=== PATIENT | male | born 1990 | race Two or more races ===

== ENCOUNTER 2019-07-15 12:36 | Emergency (ER) | payer SELFPAY ==
[~2019-07-15] VITALS: Ht 172.7 cm; Wt 72.6 kg
[2019-07-15 12:50] VITALS: BP 114/71
--- NOTE | 2019-07-15 12:50 | NUR ---
ED Nurse Note: pt brought in to ER by ambulance from home after witnessed seizure by a friend. pt sleeping but responds to his name. skin clean and intact. pt is in gown and on monitor technician. no acute distress noted. seizure pads applied.
[2019-07-15 13:17] LABS: BASOPHILS % (AUTO) 1.1 % (0.0-2.0); EOSINOPHILS % (AUTO) 1.8 % (0.0-3.0); HEMATOCRIT 44.8 % (42.0-52.0); HEMOGLOBIN 14.3 G/DL (14.2-18.0); LYMPHOCYTES % (AUTO) 27.4 % (20.0-45.0); MEAN CORPUSCULAR VOLUME 86 FL (80-99); MONOCYTES % (AUTO) 7.8 % (1.0-10.0); PLATELET COUNT 230 K/UL (150-450); RED CELL DISTRIBUTION WIDTH 12.7 % (11.6-14.8); WHITE BLOOD COUNT 5.6 K/UL (4.8-10.8)
[2019-07-15 13:26] LABS: ANION GAP 10 mmol/L (5-15); BLOOD UREA NITROGEN 11 mg/dL (7-18); CALCIUM 9.4 MG/DL (8.5-10.1); CARBON DIOXIDE 27 MMOL/L (21-32); CHLORIDE 106 MMOL/L (98-107); CREATININE 1.3 MG/DL (0.55-1.30); POTASSIUM 4.4 MMOL/L (3.5-5.1); SODIUM 143 MMOL/L (136-145)
[2019-07-15 13:32] LABS: ALANINE AMINOTRANSFERASE 17 U/L (12-78); ALBUMIN 4.2 G/DL (3.4-5.0); ALBUMIN/GLOBULIN RATIO 1.2 (1.0-2.7); ALKALINE PHOSPHATASE 64 U/L (46-116); ASPARTATE AMINO TRANSFERASE 20 U/L (15-37); BILIRUBIN,TOTAL 0.6 MG/DL (0.2-1.0)
--- NOTE | 2019-07-15 13:53 | NUR ---
ED Nurse Note: urine sent to lab.
--- NOTE | 2019-07-15 14:27 | Emergency Room Report ---
History of Present Illness General Chief Complaint: Seizure Source: Significant Other, EMS Present Illness HPI 29-year-old male presents ED for evaluation. Brought in by EMS status post seizure. Witnessed seizure at home while in bed. Tonic-clonic then resolved. Patient postictal upon arrival. No reported fall or injury. Patient has history of seizures as girlfriend mentions however she does not know what medication the patient takes. Does not have any pill bottles at home. States she does not believe the patient is compliant with his meds. unknown if patient uses any drugs. No other aggravating relieving factors. No other associated symptoms Allergies: Coded Allergies: No Known Allergies (Unverified , 07/15/19) Patient History Past Medical History: seizures Past Surgical History: none Pertinent Family History: none Social History: Denies: smoking, alcohol use, drug use Immunizations: UTD Reviewed Nursing Documentation: PMH: Agreed; PSxH: Agreed Nursing Documentation-PMH Past Medical History: No History, Except For Hx Seizures: Yes Review of Systems All Other Systems: limited Physical Exam Vital Signs Date Time Temp Pulse Resp B/P (MAP) Pulse Ox O2 Delivery O2 Flow Rate FiO2 07/15/19 12:36 97.3 66 20 114/71 (85) 98 Room Air Sp02 EP Interpretation: reviewed, normal General Appearance: no apparent distress, GCS 15, non-toxic, Postictal Head: normocephalic Eyes: bilateral eye normal inspection, bilateral eye PERRL ENT: normal ENT inspection Neck: normal inspection Respiratory: chest non-tender, lungs clear, normal breath sounds, speaking full sentences Cardiovascular #1: regular rate, rhythm, no edema Gastrointestinal: normal bowel sounds, non tender, soft, non-distended, no guarding, no rebound Rectal: deferred Genitourinary: no CVA tenderness Musculoskeletal: normal inspection Neurologic: other - lethargic Psychiatric: other - lethargic Skin: no rash Lymphatic: normal inspection Medical Decision Making Diagnostic Impression: Primary Impression: Seizure disorder Additional Impression: Substance abuse ER Course Hospital Course 29-year-old M presents to ED status post seizure. postictal Differential diagnosis includes- breakthrough seizure, alcohol abuse, noncompliance with medication Clinical course Patient placed on stretcher. Initial history and physical I ordered labs, IV fluids Labs-electrolytes okay, no leukocytosis, hemoglobin/hematocrit stable. UTox + THC + amphetamines Patient allowed to rest is now awake alert oriented x3. Focal deficits. Patient states that he does not actually take any seizure meds. Has been having seizures for the last 5 to 6 months. States that he has been seen in ER multiple times for this. Has had multiple CTs. However states he was not prescribed any medication. I discussed findings of amphetamine and marijuana use which capitate seizures. Patient states that he was told is the possibility. Is agreeable to starting seizure therapy. Will start on Keppra. Given Keppra here. Safe for discharge with close outpatient follow-up. Does not have a PMD. Will provide referrals Diagnosis - substance abuse, seizure disorder stable and discharged to home with Rx Keppra. Followup with PMD. Return to ED if symptoms recur or worsen Labs Test 07/15/19 12:50 07/15/19 13:50 White Blood Count 5.6 K/UL (4.8-10.8) Red Blood Count 5.20 M/UL (4.70-6.10) Hemoglobin 14.3 G/DL (14.2-18.0) Hematocrit 44.8 % (42.0-52.0) Mean Corpuscular Volume 86 FL (80-99) Mean Corpuscular Hemoglobin 27.5 PG (27.0-31.0) Mean Corpuscular Hemoglobin Concent 31.9 G/DL (32.0-36.0) Red Cell Distribution Width 12.7 % (11.6-14.8) Platelet Count 230 K/UL (150-450) Mean Platelet Volume 6.9 FL (6.5-10.1) Neutrophils (%) (Auto) 62.0 % (45.0-75.0) Lymphocytes (%) (Auto) 27.4 % (20.0-45.0) Monocytes (%) (Auto) 7.8 % (1.0-10.0) Eosinophils (%) (Auto) 1.8 % (0.0-3.0) Basophils (%) (Auto) 1.1 % (0.0-2.0) Sodium Level 143 MMOL/L (136-145) Potassium Level 4.4 MMOL/L (3.5-5.1) Chloride Level 106 MMOL/L (98-107) Carbon Dioxide Level 27 MMOL/L (21-32) Anion Gap 10 mmol/L (5-15) Blood Urea Nitrogen 11 mg/dL (7-18) Creatinine 1.3 MG/DL (0.55-1.30) Estimat Glomerular Filtration Rate > 60 mL/min (>60) Glucose Level 95 MG/DL (74-106) Calcium Level 9.4 MG/DL (8.5-10.1) Total Bilirubin 0.6 MG/DL (0.2-1.0) Aspartate Amino Transf (AST/SGOT) 20 U/L (15-37) Alanine Aminotransferase (ALT/SGPT) 17 U/L (12-78) Alkaline Phosphatase 64 U/L (46-116) Total Protein 7.7 G/DL (6.4-8.2) Albumin 4.2 G/DL (3.4-5.0) Globulin 3.5 g/dL Albumin/Globulin Ratio 1.2 (1.0-2.7) Salicylates Level 2.4 ug/mL (2.8-20) Acetaminophen Level < 2 MCG/ML (10-30) Phenytoin (Dilantin) Level 0.6 ug/mL (10-20) Carbamazepine (Tegretol) Level < 0.5 ug/mL (4.0-12.0) Phenobarbital Level 1.2 ug/mL (15-40) Serum Alcohol < 3 mg/dL Urine Opiates Screen Negative (NEGATIVE) Urine Barbiturates Screen Negative (NEGATIVE) Phencyclidine (PCP) Screen Negative (NEGATIVE) Urine Amphetamines Screen Positive (NEGATIVE) Urine Benzodiazepines Screen Negative (NEGATIVE) Urine Cocaine Screen Negative (NEGATIVE) Urine Marijuana (THC) Screen Positive (NEGATIVE) Last Vital Signs Date Time Temp Pulse Resp B/P (MAP) Pulse Ox O2 Delivery O2 Flow Rate FiO2 07/15/19 12:50 97.3 67 20 114/71 98 Room Air Status: improved Disposition: HOME, SELF-CARE Condition: Stable Scripts Levetiracetam (KEPPRA) 500 Mg Tablet 500 MG ORAL EVERY 12 HOURS, #60 TAB 0 Refills Prov: Yasir Camilo MD 07/15/19 Referrals: NOT CHOSEN [facility]/,REFERRING (PCP) Yasir Camilo MD Jul 15, 2019 14:27
[2019-07-15] MEDS ORDERED: KEPPRA500 M4 ORAL (15:16)
--- NOTE | 2019-07-15 15:31 | NUR ---
ED Nurse Note: pt cleared to be d/c per ERMd, pt discharge and aftercare instruction provided w/ prescription, pt education done, pt advised to follow up with pcp or return to ed if changes in condition, vss, ambulatory w/ steady gait, left w/ all belongings, iv d/c and id band removed, pt accompanied by friend.
[2019-07-15 15:32] VITALS: BP 128/86
== END 2019-07-15 15:32 | disposition home or self-care (01) ==
LOC: EDBD 12:36 → EMR 12:55
DX: G40.909 Epilepsy, unspecified, not intractable, without status epilepticus (principal); F19.10 Other psychoactive substance abuse, uncomplicated
CPT/HCPCS: 36415; 80053; 80156; 80184; 80185; 80299; 80307; 82962; 85025; 96360; 99284; G0480; 80329

== ENCOUNTER 2019-08-09 20:19 | Emergency (ER) | payer OTHER, MEDICAID ==
[~2019-08-09] VITALS: Ht 170.2 cm; Wt 81.6 kg
[~2019-08-09 20:19] MED LIST: KEPPRA500 M4 ORAL
[2019-08-09 20:30] VITALS: BP 141/90
--- NOTE | 2019-08-09 20:30 | NUR ---
ED Nurse Note: Patient brought in by ambulance accompanied by LAPBertha c/o medical clearance, patient was tased prior to arrival and is complaining of left hand pain radiating to his left upper back, patient states that he was tased twice, complains of 8/10 pain, will wait for further orders
--- NOTE | 2019-08-09 21:15 | Diagnostic Imaging Report ---
Indication: Left hand pain Technique: 3 views left hand Comparison: none Findings: There are impacted fractures of the third and fourth proximal metacarpals. These may extend into the articular surface. These are posteriorly displaced by about one half bone width. There is a fracture of the posterior corner of the base of the fifth distal phalanx. This is posteriorly displaced. Acuity is indeterminate as the margins of the fracture lines appear corticated and there is evidence of some secondary degenerative change There is an old ununited fracture of the ulnar styloid. No other acute fractures. Joint spaces are preserved. Surgical hardware is seen along the radial shaft Impression: Positive for acute third and fourth that is pleural-based fractures Acuity indeterminate fracture of the base of the fifth distal phalanx Evidence of prior ulnar and radial trauma, evidence of prior radial fixation surgery This agrees with the preliminary interpretation provided overnight by [facility] teleradiology service.
[2019-08-09] MEDS ORDERED: Tetanus/Diptheria/Pertussis IM ONE (21:30)
[2019-08-09] MEDS ORDERED: Augmentin 875mg Tab ORAL ONE (21:30)
[2019-08-09] MEDS ORDERED: Naproxen 500mg tab ORAL ONE (22:15)
[2019-08-09] MEDS ORDERED: Acetaminophen 500mg (ES) tab ORAL ONE (22:15)
[2019-08-09] MEDS ORDERED: AUGMENTIN 875-1 EAC1 ORAL (22:20)
[2019-08-09] MEDS ORDERED: NAPROXEN250 MG ORAL (22:20)
--- NOTE | 2019-08-09 22:20 | Emergency Room Report ---
History of Present Illness General Chief Complaint: Medical Clearance Source: Patient Present Illness HPI 28-year-old male no past medical history presents with left hand pain after being tased just prior to arrival, he fell forward on his left hand patient endorses sharp pain worsened with movement alleviated with rest, patient also with a taser to the left back. Allergies: Coded Allergies: No Known Allergies (Unverified , 07/15/19) Patient History Past Medical History: see triage record Reviewed Nursing Documentation: PMH: Agreed; PSxH: Agreed Nursing Documentation-PMH Past Medical History: No History, Except For Hx Seizures: Yes Review of Systems All Other Systems: negative except mentioned in HPI Physical Exam Vital Signs Date Time Temp Pulse Resp B/P (MAP) Pulse Ox O2 Delivery O2 Flow Rate FiO2 08/09/19 20:24 98.6 84 18 141/90 (107) 97 Room Air Sp02 EP Interpretation: reviewed, normal General Appearance: well appearing, no apparent distress, alert Head: normocephalic, atraumatic Eyes: bilateral eye PERRL, bilateral eye EOMI ENT: uvula midline, moist mucus membranes Neck: supple, thyroid normal, supple/symm/no masses Respiratory: lungs clear, no respiratory distress, no retraction, no accessory muscle use Cardiovascular #1: normal peripheral pulses, regular rate, rhythm, no edema, no gallop, no murmur Gastrointestinal: non tender, soft, no guarding, no rebound Musculoskeletal: normal inspection, other - Back: Taser embedded to the left upper back, left hand: Tenderness to palpation metacarpals 3 and 4, 2+ radial pulses cap refill less than 3 seconds, radial median ulnar nerve intact 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 Neurologic: alert, oriented x3 Psychiatric: mood/affect normal Skin: no rash, warm/dry Procedures Splinting Splinting : Consent: Verbal Location: Left hand Splint: ulnar - Modified covering digits 2 through 5 Pre-Proc Neuro Vasc Exam: normal Post-Proc Neuro Vasc Exam: normal Patient Tolerated: Well Complications: None Additional Procedure Procedure Narrative Left upper back: Foreign body removed using lidocaine 1%, area was cleansed with chlorhexidine, patient gave verbal permission, the scalpel was used to make a small luci to remove the taser prong Medical Decision Making Diagnostic Impression: Primary Impression: Hand fracture, left Qualified Codes: S62.92XA - Unspecified fracture of left wrist and hand, initial encounter for closed fracture Additional Impression: Taser injury Qualified Codes: T75.4XXA - Electrocution, initial encounter ER Course 28-year-old male presents with left hand pain, most likely a fracture, x-ray shows a fracture, foreign body was removed from the left upper back tetanus was given, pain control. Will disposition patient back to law enforcement patient is medically cleared CT/MRI/US Diagnostic Results CT/MRI/US Diagnostic Results : Impression Preliminary Findings Only See Final Report For Complete Findings FILM LEFT HAND: Fractures of the base of the third and fourth metacarpals. Soft tissue swelling. Fracture of uncertain chronicity at the fifth interphalangeal joint area Degenerative changes. Plate and screw fixation distal in the radius. Radiologist: Angus Turner M.D. Study ready at 21:12 and initial results transmitted at 21:14 Last Vital Signs Date Time Temp Pulse Resp B/P (MAP) Pulse Ox O2 Delivery O2 Flow Rate FiO2 08/09/19 20:24 98.6 84 18 141/90 (107) 97 Room Air Disposition: HOME, SELF-CARE Condition: Stable Scripts Naproxen* (NAPROSYN*) 250 Mg Tablet 250 MG ORAL BID PRN for For Pain, #20 TAB 0 Refills Prov: Favio Saleh MD 08/09/19 Amoxicillin/Potassium Clav 875-125* (AUGMENTIN 875-125 TABLET*) 1 Each Tablet 1 TAB ORAL TWICE A DAY, #14 TAB Prov: Favio Saleh MD 08/09/19 Referrals: NOT CHOSEN [facility]/MD,REFERRING (PCP) [facility] Departure Forms: Detention Clearance Patient Instructions: Metacarpal Fracture, [id number] Additional Instructions: The patient was provided with discharge instructions, notified to follow-up with a primary care doctor and or specialist in the next 24-48 hours, and to return to the ED if they have worsening of their symptoms. Please note that this report is being documented using [employer] technology. This can lead to erroneous entry secondary to incorrect interpretation by the dictating instrument. Favio Saleh MD Aug 09, 2019 22:20
[2019-08-09 22:30] VITALS: BP 132/78
--- NOTE | 2019-08-09 22:30 | NUR ---
Note lora in EDM - 08/10/19 at 0129 by ANGELIKA ER DISCHARGE NOTE: Patient is cleared to be discharged per ERMD, pt is aox4, on room air, with stable vital signs. pt was given dc and prescription instructions, pt was able to verbalize understanding, pt id band removed without complications. pt is able to ambulate with steady gait. pt took all belongings.Patient was applied a sling and laceration cleaned up
== END 2019-08-09 22:30 | disposition home or self-care (01) ==
LOC: EDUNIT# 20:19 → EDBD 20:19 → EMR 21:30
DX: S62.313A Displaced fracture of base of third metacarpal bone, left hand, initial encounter for closed fracture (principal); S62.315A Displaced fracture of base of fourth metacarpal bone, left hand, initial encounter for closed fracture; S62.317A Displaced fracture of base of fifth metacarpal bone, left hand, initial encounter for closed fracture; T75.4XXA Electrocution, initial encounter; S20.452A Superficial foreign body of left back wall of thorax, initial encounter; Y35.893A Legal intervention involving other specified means, suspect injured, initial encounter; Y92.9 Unspecified place or not applicable; Z23 Encounter for immunization
CPT/HCPCS: 29125; 90471; 90715; 99283

== ENCOUNTER 2020-09-10 07:50 | Inpatient (IN) | payer SELFPAY ==
[2020-09-10] VITALS (7 sets, daily range): BP systolic 121–134; BP diastolic 68–88
[~2020-09-10] VITALS: Ht 170.2 cm; Wt 92.0 kg
[~2020-09-10 07:50] MED LIST changes: +AUGMENTIN 875-1 EAC1 ORAL; +NAPROXEN250 MG ORAL
--- NOTE | 2020-09-10 07:55 | Emergency Room Report ---
History of Present Illness General Chief Complaint: Seizure Source: Patient Present Illness HPI 29-year-old male with history of seizure disorder here with a seizure. Patient lives in an apartment with several other individuals who said that the patient had a tonic-clonic type seizure earlier this morning. This occurred about 30 minutes prior to coming to the emergency department. They state that the patie nt has had seizures many times in the past. Patient admits to being noncompliant with his seizure medications. He says he has not taken seizure medications in several years. Does not know the name of the medication that he was taking previously. Denies trauma, headache, vision changes, focal numbness or weakness, chest pain, palpitations, shortness of breath, back pain, abdominal pain, nausea, vomiting, diarrhea, dysuria, drug use, daily alcohol use. Stat blood glucose per paramedics was 102. Allergies: Coded Allergies: No Known Allergies (Unverified , 07/15/19) COVID-19 Screening Contact w/high risk pt: No Experienced COVID-19 symptoms?: No COVID-19 Testing performed TITLE INSURANCE AGENT: No Nursing Documentation-[facility] Past Medical History: No History, Except For Hx Seizures: Yes Review of Systems All Other Systems: negative except mentioned in HPI Physical Exam Vital Signs Date Time Temp Pulse Resp B/P (MAP) Pulse Ox O2 Delivery O2 Flow Rate FiO2 09/10/20 07:46 98.1 105 20 121/72 (88) 98 Room Air Sp02 EP Interpretation: reviewed, normal General Appearance: no apparent distress, GCS 15, non-toxic, other - Appears fatigued and mildly lethargic, but is awake and arousable and answering questions appropriately Head: normocephalic, atraumatic Eyes: bilateral eye normal inspection, bilateral eye PERRL ENT: hearing grossly normal, normal pharynx, no angioedema, normal voice Neck: full range of motion, supple/symm/no masses Respiratory: chest non-tender, lungs clear, normal breath sounds, speaking full sentences Cardiovascular #1: regular rate, rhythm, no edema Cardiovascular #2: 2+ carotid (R), 2+ carotid (L), 2+ radial (R), 2+ radial (L), 2+ dorsalis pedis (R), 2+ dorsalis pedis (L) Gastrointestinal: normal bowel sounds, non tender, soft, non-distended, no guarding, no rebound Rectal: deferred Genitourinary: normal inspection, no CVA tenderness Musculoskeletal: back normal, normal range of motion, gait/station normal, non- tender Neurologic: alert, motor strength/tone normal, oriented, oriented x3, sensory intact, responsive, speech normal Psychiatric: judgement/insight normal, memory normal, mood/affect normal, no suicidal/homicidal ideation Lymphatic: no adenopathy Medical Decision Making Diagnostic Impression: Primary Impression: KYARA (acute kidney injury) Additional Impressions: Seizure AMS (altered mental status) ER Course EKG: NSR, no ischemia, intervals WNL. No ectopy. rate 88bpm Rhythm strip: patient monitored for arrhythmias - no malignant dysrhythmias, runs of PVCs, nor pauses noted Total critical care time: Approximately 25 minutes Due to a high probability of clinically significant, life threatening deterioration, the patient required the highest level of preparedness to intervene emergently and I personally spent this critical care time directly and personally managing the patient. This critical care time included obtaining a history, examining the patient, pulse oximetry, ordering and reviewing studies, ordering treatments, evaluating response to treatment and updating management plan as needed, frequent reassessment and discussion with other providers as well as arranging for ultimate disposition. This critical to care time was performed to assess and manage the high probability of life-threatening deterioration that could result in multiorgan failure. This critical care time is separate from the separately billable procedures and treating other patients. Laboratory Tests Test 09/10/20 07:55 09/10/20 08:10 White Blood Count 7.9 K/UL (4.8-10.8) Red Blood Count 6.64 M/UL (4.70-6.10) H Hemoglobin 18.3 G/DL (14.2-18.0) *H Hematocrit 58.4 % (42.0-52.0) H Mean Corpuscular Volume 88 FL (80-99) Mean Corpuscular Hemoglobin 27.6 PG (27.0-31.0) Mean Corpuscular Hemoglobin Concent 31.3 G/DL (32.0-36.0) L Red Cell Distribution Width 12.6 % (11.6-14.8) Platelet Count 222 K/UL (150-450) Mean Platelet Volume 7.8 FL (6.5-10.1) Neutrophils (%) (Auto) 63.5 % (45.0-75.0) Lymphocytes (%) (Auto) 26.0 % (20.0-45.0) Monocytes (%) (Auto) 7.8 % (1.0-10.0) Eosinophils (%) (Auto) 1.3 % (0.0-3.0) Basophils (%) (Auto) 1.4 % (0.0-2.0) Sodium Level 136 MMOL/L (136-145) Potassium Level 4.8 MMOL/L (3.5-5.1) Chloride Level 97 MMOL/L (98-107) L Carbon Dioxide Level 22 MMOL/L (21-32) Anion Gap 17 mmol/L (5-15) H Blood Urea Nitrogen 17 mg/dL (7-18) Creatinine 2.0 MG/DL (0.55-1.30) H Estimated Glomerular Filtration Rate 47.8 mL/min (>60) Glucose Level 136 MG/DL (74-106) H Calcium Level 9.4 MG/DL (8.5-10.1) Total Bilirubin 0.4 MG/DL (0.2-1.0) Aspartate Amino Transferase (AST) 27 U/L (15-37) Alanine Aminotransferase (ALT) 22 U/L (12-78) Alkaline Phosphatase 74 U/L (46-116) Total Protein 8.3 G/DL (6.4-8.2) H Albumin 4.7 G/DL (3.4-5.0) Globulin 3.6 g/dL Albumin/Globulin Ratio 1.3 (1.0-2.7) POC Whole Blood Glucose 86 MG/DL (74-106) CXR: No infiltrate/effusion. Mediastinum within normal limits. Mild cardiomegaly. No free air under the diaphragm 29-year-old male with suspected seizure disorder here with seizure and altered mental status. Patient appears postictal and confused throughout his stay in the emergency department. CBC revealed a highly elevated hemoglobin of 18.6. Hematocrit was 58%. CMP revealed elevated creatinine of 2.0. Patient was given 2 L of IV normal saline in the emergency department. It is unknown whether the patient has a normal baseline creatinine. However when patient was lucid enough to answer questions he said he had no medical problems. At this time it is very difficult to obtain history secondary to his confusion and postictal state. CT of the head did not show any acute abnormalities. Urine drug screen positive for amphetamines and THC. Patient was admitted to telemetry. Last Vital Signs Date Time Temp Pulse Resp B/P (MAP) Pulse Ox O2 Delivery O2 Flow Rate FiO2 09/10/20 07:46 98.1 105 20 121/72 (88) 98 Room Air Scripts Levetiracetam (KEPPRA) 500 Mg Tablet 500 MG ORAL EVERY 12 HOURS, #60 TAB 0 Refills Prov: Finn Ching M.D. 09/10/20 iFnn Ching M.D. Sep 10, 2020 07:55
[2020-09-10] MEDS ORDERED: levETIRAcetam 1,000mg/NS100ml 100 ML IVPB ONE (08:00)
--- NOTE | 2020-09-10 08:00 | NUR ---
ED Nurse Note: pt arrives from home via [facility] with c/o witnessed seizure lasting approx 1 minute. pt arouseable to verbal stimuli and is oriented to self, place and year. pt appears post ictal and lethargic. no trauma noted. pt with frequent teeth grinding noted. resp even and regular airway well maintained. seizure pads in use and placed on telemetry. pt tolerates iv start and lab draw well.
[2020-09-10] MEDS ORDERED: KEPPRA500 M4 ORAL (08:10)
--- NOTE | 2020-09-10 08:20 | NUR ---
ED Nurse Note: pt to ct. no new seizure activity noted.
[2020-09-10 08:26] LABS: CALCIUM 9.4 MG/DL (8.5-10.1); POTASSIUM 4.8 MMOL/L (3.5-5.1)
[2020-09-10 08:30] LABS: ALBUMIN 4.7 G/DL (3.4-5.0); ALBUMIN/GLOBULIN RATIO 1.3 (1.0-2.7); BILIRUBIN,TOTAL 0.4 MG/DL (0.2-1.0)
[2020-09-10 08:33] LABS: BASOPHILS % (AUTO) 1.4 % (0.0-2.0); EOSINOPHILS % (AUTO) 1.3 % (0.0-3.0); HEMATOCRIT 58.4 % (42.0-52.0); MEAN CORPUSCULAR VOLUME 88 FL (80-99); MONOCYTES % (AUTO) 7.8 % (1.0-10.0); NEUTROPHILS % (AUTO) 63.5 % (45.0-75.0); PLATELET COUNT 222 K/UL (150-450); RED BLOOD COUNT 6.64 M/UL (4.70-6.10); RED CELL DISTRIBUTION WIDTH 12.6 % (11.6-14.8); WHITE BLOOD COUNT 7.9 K/UL (4.8-10.8)
[2020-09-10 08:35] LABS: HEMOGLOBIN 18.3 G/DL (14.2-18.0)
--- NOTE | 2020-09-10 08:45 | NUR ---
ED Nurse Note: returned from ct scan, no new seizure activity. tolerates keppra well. airway well maintained.
--- NOTE | 2020-09-10 08:55 | NUR ---
ED Nurse Note: pt with straight cath urine obtained, tolerates well. pt noted to have been incontinent of urine. sample sent as ordered.
[2020-09-10 09:20] LABS: APPEARANCE,URINE CLEAR; BILIRUBIN, URINE NEGATIVE (NEGATIVE); GLUCOSE, URINE (UA) NEGATIVE (NEGATIVE); KETONES,URINE NEGATIVE (NEGATIVE); LEUKOCYTE ESTERASE ,URINE NEGATIVE (NEGATIVE); NITRITE,URINE NEGATIVE (NEGATIVE); PH,URINE 6.5 (4.5-8.0); PROTEIN,URINE 3+ (NEGATIVE); UROBILINOGEN,URINE 1 MG/DL (0.0-1.0)
[2020-09-10 09:25] LABS: COLOR,URINE YELLOW
--- NOTE | 2020-09-10 09:26 | Diagnostic Imaging Report ---
EXAM: CT CT Head no Contrast INDICATION: Altered mental status. Seizure. TECHNIQUE: Axial images of the brain were obtained with subsequent sagittal and coronal reformats. All CT scans at this facility are performed using dose modulation techniques as appropriate to a performed exam including the following: automated exposure control with adjustment of the mA and/or kV according to patient size. COMPARISON STUDY: None. RADIATION DOSE: CTDIvol: 53.4 mGy DLP: 1072.2 mGy-cm Dose information generated by the CT scanner is available in PACS. FINDINGS: There is normal symmetry and normal ott-white differentiation. There is no acute large territory cortical infarct, hemorrhage, mass effect or shift. Ventricles and cisterns as well as brainstem and posterior fossa appear unremarkable. The sellar region is normal. Sinuses, mastoid air cells and bony calvarium appear intact. IMPRESSION: NO ACUTE INTRACRANIAL ABNORMALITY.
[2020-09-10] MEDS ORDERED: LEVETIRACETAM500 MG ORAL (10:36)
[2020-09-10] MEDS ORDERED: Mylanta II UD 30ml ORAL PRN (11:00)
[2020-09-10] MEDS ORDERED: Albuterol/Ipratropium 3ml neb HHN PRN (11:00)
[2020-09-10] MEDS ORDERED: Miralax 17gm pkt ORAL PRN (11:00)
--- NOTE | 2020-09-10 11:29 | History and Physical ---
History of Present Illness General Reason for Hospitalization: Seizure Present Illness HPI Mr. Christensen is a 29M with PMH of seizures disorder who was BIBA for witnessed tonic clonic seizure. Per discussion with ED physician, a neighbor or bystander witnessed patient undergo tonic clonic seizure before calling 911. No other information known at the scene. Patient does not remember how he got to the hospital; "last thing I remember was falling asleep." Says he is living alone, however, ED physician said possibly came from [facility] [address] as he was previo usly incarcerated. Patient reports long standing history of seizure disorder and gets breakthrough seizures 1-2 per year. He is on Keppra 1000mg BID and reports compliance. He admits to amphetamine use frequently. Prior to event patient reports feeling well. Denies any recents illnesses, sick contacts, or travels. No new medications. In the ED, patient hemodynamically stable. No airway compromise. He is a little lethargic but AOx4. Labs show hemoconcentration and KYARA. He was bolused fluids and given Keppra. CT head neg. PMH: Seizure disorder Fx: denies seizure history or other medical history Sx: none Meds: keppra Soc: denies smoking, soc drinker, +methamphetamine use Allergies: Coded Allergies: No Known Allergies (Unverified , 07/15/19) COVID-19 Screening Contact w/high risk pt: No Experienced COVID-19 symptoms?: No Medication History Scheduled Amoxicillin/Potassium Clav 875-125* (Augmentin 875-125 Tablet*), 1 TAB ORAL TWICE A DAY Levetiracetam (Keppra), 500 MG ORAL EVERY 12 HOURS Levetiracetam (Keppra), 500 MG ORAL EVERY 12 HOURS Levetiracetam* (Levetiracetam*), 1,000 MG ORAL TWICE A DAY, (Reported) Scheduled PRN Naproxen* (Naprosyn*), 250 MG ORAL BID PRN for For Pain Patient History Healthcare decision maker Resuscitation status Advanced Directive on File Review of Systems Constitutional: Denies: no symptoms, see HPI, chills, sweats, fever, malaise, weakness, other Eye: Denies: no symptoms, see HPI, eye pain, blurred vision, tearing, double vision, nose pain, nose congestion, acuity changes, discharge, other ENT: Denies: no symptoms, see HPI, ear pain, ear discharge, nose pain, nose congestion, throat pain, throat swelling, mouth pain, hearing loss, nasal discharge, other Respiratory: Denies: no symptoms, see HPI, cough, orthopnea, shortness of breath, stridor, wheezing, WILLIAM, sputum, other Cardiovascular: Denies: no symptoms, see HPI, chest pain, edema, palpitations, syncope, PND, other Gastrointestinal: Denies: no symptoms, see HPI, abdominal pain, constipation, diarrhea, nausea, vomiting, melena, hematemesis, other Genitourinary: Denies: no symptoms, see HPI, discharge, dysuria, frequency, hematuria, pain, retention, incontinence, urgency, vag bleed/dc, other Musculoskeletal: Denies: no symptoms, see HPI, back pain, gout, joint pain, joint swelling, muscle pain, muscle stiffness, other Skin: Denies: no symptoms, see HPI, rash, change in color, change in hair/ nails, dryness, lesions, other Psychiatric: Denies: no symptoms, see HPI, prior hx, anxiety, depressed fee lings, emotional problems, SI, HI, hallucinations, other Neurological: Reports: seizure; Denies: no symptoms, see HPI, headache, numbness, paresthesia, tingling, tremors, focal weakness, syncope, dizziness, other Endocrine: Denies: no symptoms, see HPI, excessive sweating, flushing, intolerance to temperature, increased thirst, increased urine, unexplained weight loss, other Hematologic/Lymphatic: Denies: no symptoms, see HPI, anemia, blood clots, easy bleeding, easy bruising, swollen glands, diathesis, other Physical Exam General Appearance: no apparent distress, lethargic, alert oriented x3 HEENT: normocephalic, atraumatic, PERRL Neck: non-tender, normal inspection Respiratory/Chest: chest wall non-tender, lungs clear, normal breath sounds Cardiovascular/Chest: normal rate, regular rhythm, no JVD Abdomen: normal bowel sounds, non tender, soft Extremities: normal range of motion, non-tender Skin Exam: normal pigmentation, warm/dry 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, alert, oriented x 3 Musculoskeletal: normal muscle bulk, no effusion Last 24 Hour Vital Signs Date Time Temp Pulse Resp B/P (MAP) Pulse Ox O2 Delivery O2 Flow Rate FiO2 09/10/20 09:30 69 18 134/75 100 Room Air 09/10/20 08:12 82 20 Room Air 09/10/20 08:12 82 19 126/68 100 Room Air 09/10/20 07:46 98.1 105 20 121/72 (88) 98 Room Air Laboratory Tests Test 09/10/20 07:55 09/10/20 08:10 09/10/20 09:05 White Blood Count 7.9 K/UL (4.8-10.8) Red Blood Count 6.64 M/UL (4.70-6.10) H Hemoglobin 18.3 G/DL (14.2-18.0) *H Hematocrit 58.4 % (42.0-52.0) H Mean Corpuscular Volume 88 FL (80-99) Mean Corpuscular Hemoglobin 27.6 PG (27.0-31.0) Mean Corpuscular Hemoglobin Concent 31.3 G/DL (32.0-36.0) L Red Cell Distribution Width 12.6 % (11.6-14.8) Platelet Count 222 K/UL (150-450) Mean Platelet Volume 7.8 FL (6.5-10.1) Neutrophils (%) (Auto) 63.5 % (45.0-75.0) Lymphocytes (%) (Auto) 26.0 % (20.0-45.0) Monocytes (%) (Auto) 7.8 % (1.0-10.0) Eosinophils (%) (Auto) 1.3 % (0.0-3.0) Basophils (%) (Auto) 1.4 % (0.0-2.0) Sodium Level 136 MMOL/L (136-145) Potassium Level 4.8 MMOL/L (3.5-5.1) Chloride Level 97 MMOL/L (98-107) L Carbon Dioxide Level 22 MMOL/L (21-32) Anion Gap 17 mmol/L (5-15) H Blood Urea Nitrogen 17 mg/dL (7-18) Creatinine 2.0 MG/DL (0.55-1.30) H Estimat Glomerular Filtration Rate 47.8 mL/min (>60) Glucose Level 136 MG/DL (74-106) H Calcium Level 9.4 MG/DL (8.5-10.1) Total Bilirubin 0.4 MG/DL (0.2-1.0) Aspartate Amino Transf (AST/SGOT) 27 U/L (15-37) Alanine Aminotransferase (ALT/SGPT) 22 U/L (12-78) Alkaline Phosphatase 74 U/L (46-116) Total Protein 8.3 G/DL (6.4-8.2) H Albumin 4.7 G/DL (3.4-5.0) Globulin 3.6 g/dL Albumin/Globulin Ratio 1.3 (1.0-2.7) POC Whole Blood Glucose 86 MG/DL (74-106) Urine Color Yellow Urine Appearance Clear Urine pH 6.5 (4.5-8.0) Urine Specific [place] 1.015 (1.005-1.035) Urine Protein 3+ (NEGATIVE) H Urine Glucose (UA) Negative (NEGATIVE) Urine Ketones Negative (NEGATIVE) Urine Blood 1+ (NEGATIVE) H Urine Nitrite Negative (NEGATIVE) Urine Bilirubin Negative (NEGATIVE) Urine Urobilinogen 1 MG/DL (0.0-1.0) H Urine Leukocyte Esterase Negative (NEGATIVE) Urine RBC 0-2 /HPF (0 - 0) H Urine WBC 0 /HPF (0 - 0) Urine Squamous Epithelial Cells Occasional /LPF Urine Bacteria Occasional /HPF (NONE) Urine Mucus Occasional /LPF Urine Opiates Screen Negative (NEGATIVE) Urine Barbiturates Screen Negative (NEGATIVE) Phencyclidine (PCP) Screen Negative (NEGATIVE) Urine Amphetamines Screen Positive (NEGATIVE) H Urine Benzodiazepines Screen Negative (NEGATIVE) Urine Cocaine Screen Negative (NEGATIVE) Urine Marijuana (THC) Screen Positive (NEGATIVE) H Height (Feet): 5 Height (Inches): 10.00 Weight (Pounds): 150 Medications Current Medications Medications (Trade) Dose Ordered Sig/Bekah Route PRN Reason Start Time Stop Time Status Last Admin Dose Admin Acetaminophen (Tylenol) 650 mg Q4H PRN ORAL Mild Pain (Pain Scale 1-3) 09/10/20 11:00 10/10/20 10:59 UNV Acetaminophen (Tylenol) 650 mg Q4H PRN ORAL Temp >100.5 09/10/20 11:00 10/10/20 10:59 UNV Al Hydroxide/Mg Hydroxide (Mylanta II) 30 ml Q6H PRN ORAL dyspepsia 09/10/20 11:00 10/10/20 10:59 UNV Albuterol/ Ipratropium (Albuterol/ Ipratropium) 3 ml Q4HR PRN HHN Shortness of Breath 09/10/20 11:00 09/15/20 10:59 UNV Dextrose (Dextrose 50%) 25 ml Q30M PRN IV Hypoglycemia 09/10/20 11:00 12/09/20 10:59 UNV Dextrose (Dextrose 50%) 50 ml Q30M PRN IV Hypoglycemia 09/10/20 11:00 12/09/20 10:59 UNV Heparin Sodium (Porcine) (Heparin 5000 units/ml) 5,000 units EVERY 12 HOURS SUBQ 09/10/20 21:00 10/25/20 20:59 UNV Levetiracetam 100 ml @ 400 mls/hr Q12HR IVPB 09/10/20 21:00 12/09/20 20:59 UNV Ondansetron HCl (Zofran) 4 mg Q6H PRN IVP Nausea & Vomiting 09/10/20 11:00 10/10/20 10:59 UNV Polyethylene Glycol (Miralax) 17 gm HSPRN PRN ORAL Constipation 09/10/20 11:00 10/10/20 10:59 UNV Sodium Chloride 1,000 ml @ 125 mls/hr Q8H IVLG 09/10/20 12:00 10/10/20 11:59 UNV Assessment/Plan Assessment/Plan: Mr. Christensen is a 29M with PMH of seizure disroder and meth use admitted for witnessed tonic clonic seizure. A: # Tonic Clonic Seizure 2/2 Meth use vs Medication noncompliance # Acute encephalopathy 2/2 post ictal state - resolved # Acute Renal Failure 2/2 Pre-renal Azotemia # Polycythemia 2/2 Hemoconcentration # Dehydration # Seizure Disorder # Methamphetamine Abuse # Hyperglycemia P: - hemodynamically stable - no airway compromise, sat well on RA - seizure precautions - fall precautions - continue Keppra 1000mg IV BID - CT scan neg for acute pathology - no electrolyte derangements or concerns of meningitis/encephalitis as etiologies - UTOX positive meth - likely etiology, possible medication non-compliance - EEG if worsening mentation or recurring seizers - defer MRI - monitor renal function - IVF - I had discussion with patient regarding cessation of substance abuse - for substance abuse help - Consult Dr. Zamora Neurology, recs appreciated CODE: Full GI: none Fluids: NS 125 cc Diet: Regular DVT: Heparin 5000U BID Dispo: pending neuro recs, if stable and improved renal function, possibly discharge tomorrow In addition to the usual care above I spent additional time reviewing records in the EMR and paper charts including physician documentation, nursing documentation, lab results, imaging and clinical documentation. Total time included was 25 min. Time spent on this encounter was 45 minutes which included 25 minutes of counseling and care coordination. I discussed with the nurse at bedside. Time of note may not reflect time patient was seen. Magdiel Tipton D.O Sep 10, 2020 11:29
--- NOTE | 2020-09-10 12:22 | NUR ---
ED Nurse Note: REPORT GIVEN TO ZARI YI
--- NOTE | 2020-09-10 13:05 | Diagnostic Imaging Report ---
Indication: Chest pain Technique: One view of the chest Comparison: none Findings: Lungs and pleural spaces are clear. Heart size is normal. Impression: No acute process
--- NOTE | 2020-09-10 15:59 | NUR ---
Social Work This SW received a consult for substance abuse. Patient is positive for Meth and marijuana. This Sw met with patient who remains alert/oriented, independent. Patient explains he lives with his friend and unemployed. Patient explains he has applied for unemployment. Patient admitting to using substances (Meth) once weekly and stating he plans to try and quit. Medical risk discussed with patient. Substance abuse resources provided to patient as well with encouragement to abstain for substance abuse. No other needs or concerns present at this time. Patient denied any depression or mental health concerns.
--- NOTE | 2020-09-10 19:08 | NUR ---
NURSE HAND-OFF REPORT: Important Events on Shift:[] Patient Status: [] Diet: [] Pending Orders: [] Pending Results/Labs:[] Pending MD notification:[] Latest Vital Signs: Temperature 98.4 , Pulse 82 , B/P 130 /70 , Respiratory Rate 18 , O2 SAT 97 , Room Air, O2 Flow Rate . Vital Sign Comment: [] EKG Rhythm: Sinus Rhythm Rhythm change?: N MD Notified?: - MD Response: Latest Dodson Fall Score: 35 Fall Risk: Medium Risk Safety Measures: Call light Within Reach, Bed Alarm Zone 1, Side Rails Side Rails x3, Bed position Low and Locked. Fall Precautions: Yellow Gown Patient Fall Education Report given to [ZARI Sanches].
--- NOTE | 2020-09-10 19:15 | NUR ---
NURSE NOTES: Important Events on Shift: Received report from Palma Dooley RN. Pt is in stable condition, denies pain, no signs or symptoms of distress noted at this time. Patient Status: Stable Diet: Regular Pending Orders: Pending Results/Labs: CBC, Phos., mag, BMP, CBC Pending MD notification: None Latest Vital Signs: Temperature 98.4 , Pulse 82 , B/P 130 /70 , Respiratory Rate 18 , O2 SAT 97 , Room Air, O2 Flow Rate . Vital Sign Comment: Stable, no seizure activity. EKG Rhythm: Sinus Rhythm Rhythm change?: N MD Notified?: - MD Response: Latest Dodson Fall Score: 35 Fall Risk: Medium Risk Safety Measures: Call light Within Reach, Bed Alarm Zone 1, Side Rails Side Rails x3, Bed position Low and Locked. Fall Precautions: yes Yellow Gown yes Patient Fall Education yes
[2020-09-10] MEDS: levETIRAcetam 1,000mg/NS100ml 100 ML IVPB SCH (21:56)
[2020-09-10] MEDS: Heparin 5000 units/ml inj SUBQ SCH (21:57)
[2020-09-11] VITALS: BP 109/65
[2020-09-11 04:00] VITALS: BP 103/64
--- NOTE | 2020-09-11 06:58 | NUR ---
NURSE HAND-OFF REPORT: Important Events on Shift: None. No seizure activity Patient Status: Stable Diet: regular Pending Orders: None Pending Results/Labs: Phos, Mag, BMP, CBC Pending MD notification: None Latest Vital Signs: Temperature 98.1 , Pulse 68 , B/P 103 /64 , Respiratory Rate 18 , O2 SAT 96 , Room Air, O2 Flow Rate . Vital Sign Comment: Stable EKG Rhythm: Sinus Rhythm Rhythm change?: N MD Notified?: - MD Response: - Latest Dodson Fall Score: 35 Fall Risk: Medium Risk Safety Measures: Call light Within Reach, Bed Alarm Zone 1, Side Rails Side Rails x2, Bed position Low and Locked. Fall Precautions: yes Yellow Socks yes Yellow Gown yes Door Sign yes Patient Fall Education yes Report to be given to Steffi Ramos RN Addendum: 09/11/20 at 0707 by Carrie Gallegos RN Report to be given to Bailey Mejia RN
--- NOTE | 2020-09-11 07:16 | NUR ---
NURSE NOTES: Received patient in bed awake. No SOB or acute distress. IV line intact and patent. HOB elevated. Bed locked in low position. Call light within reach. Will continue plan of care.
[2020-09-11 07:36] LABS: BASOPHILS % (AUTO) 1.3 % (0.0-2.0); EOSINOPHILS % (AUTO) 2.2 % (0.0-3.0); HEMATOCRIT 47.9 % (42.0-52.0); HEMOGLOBIN 15.4 G/DL (14.2-18.0); LYMPHOCYTES % (AUTO) 31.8 % (20.0-45.0); MEAN CORPUSCULAR VOLUME 85 FL (80-99); NEUTROPHILS % (AUTO) 55.7 % (45.0-75.0); PLATELET COUNT 212 K/UL (150-450); RED BLOOD COUNT 5.61 M/UL (4.70-6.10); RED CELL DISTRIBUTION WIDTH 12.6 % (11.6-14.8); WHITE BLOOD COUNT 6.6 K/UL (4.8-10.8)
[2020-09-11 08:00] VITALS: BP 119/64
[2020-09-11 08:10] LABS: ANION GAP 8 mmol/L (5-15); BLOOD UREA NITROGEN 10 mg/dL (7-18); CALCIUM 8.4 MG/DL (8.5-10.1); CARBON DIOXIDE 26 MMOL/L (21-32); CHLORIDE 103 MMOL/L (98-107); CREATININE 1.3 MG/DL (0.55-1.30); POTASSIUM 4.1 MMOL/L (3.5-5.1); SODIUM 137 MMOL/L (136-145)
[2020-09-11] MEDS: levETIRAcetam 1,000mg/NS100ml 100 ML IVPB SCH (08:27)
[2020-09-11] MEDS: Heparin 5000 units/ml inj SUBQ SCH (08:29)
--- NOTE | 2020-09-11 10:56 | Discharge Summary ---
Discharge Summary Hospital Course Date of Admission Sep 10, 2020 at 09:24 Date of Discharge 09/11/2020 Admitting Diagnosis Seizure/KYARA HPI Gurvinder Christensen is a 29 year old male who was admitted on Sep 10, 2020 at 09:24 for Seizure/Acute Kidney Injury Consultations neurology Hospital Course Patient was monitored for further seizures and started on IVF with improvement of KYARA. CTH was negative. Utox was + for amphetamine, and was deemed to be etiology of his breakthrough seizure. possible component of noncompliance, though patient reports compliance. Patient is being d/c'ed home today in stable condition. encouraged patient to refrain from drug use and to adhere to medication compliance. he will be taking his home dose of keppra 1g BID. Discharge Condition Upon Discharge: stable Discharge Vital Signs Last Vital Signs Date Time Temp Pulse Resp B/P (MAP) Pulse Ox O2 Delivery O2 Flow Rate FiO2 09/11/20 08:37 Room Air 09/11/20 08:00 97.9 79 20 119/64 (82) 99 Discharge Disposition Patient was discharged to home Discharge Diagnoses: (1) Epileptic seizure, generalized (2) Seizure disorder (3) Seizure (4) KYARA (acute kidney injury) (5) AMS (altered mental status) Walter Baker MD Sep 11, 2020 10:56
[2020-09-11 11:36] VITALS: BP 116/70
--- NOTE | 2020-09-11 12:27 | NUR ---
NURSE NOTES: Patient discharged in stable condition accompanied by girlfriend. Discharge instructions given, verbalized understanding. IV line removed. property assessment monitor removed. ID band removed. No new skin issues noted. Belongings accounted for. No home medications prescribed by .
== END 2020-09-11 12:20 | disposition home or self-care (01) | DRG 101 ==
LOC: EDBD → MERGE 08:00 → EMR 08:00 → 2E 09:24 → EDBEDREQ 11:47 → EDBEDREQSVC 12:14
DX: G40.409 Other generalized epilepsy and epileptic syndromes, not intractable, without status epilepticus (principal); G93.49 Other encephalopathy; N17.9 Acute kidney failure, unspecified; F15.10 Other stimulant abuse, uncomplicated; E86.0 Dehydration; R73.9 Hyperglycemia, unspecified
CPT/HCPCS: 36415; 70450; 71045; 80048; 80053; 80307; 81003; 82962; 83735; 84100; 85025; 93005; 96361; 96374; 99285; G0480; J7030